=== PATIENT | male | born 1995 | race Two or more races ===

== ENCOUNTER → 2024-10-27 10:14 | Outpatient (BNVA) | payer MEDICAID, SELFPAY | PROVIDERS: PCP Internal Medicine Geriatric Medicine; Visit Provider Physician Assistant Surgical ==

== ENCOUNTER 2024-11-20 08:10 | Outpatient (AMB) | payer MEDICAID, SELFPAY ==
--- NOTE | 2024-11-20 10:08 | MHC.OFFVISWM ---
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* Senior Linux Systems Engineer Required: Yes Senior Linux Systems Engineer Services: Senior Linux Systems Engineer Present Information Interpreted: clinical only Allergies SHELL FISH Allergy (Severe, Uncoded 11/20/24 10:13) Anaphylaxis Medication List - Last Reconciled 11/20/24 by Magan Mejia MD No Known Home Meds HPI HPI TV LEAF [facility]IN[facility] SWL BMI 48.8 *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 AND 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*: Details: Start time: 10.00am, End time: 11am ?I spent 55 minutes speaking with the patient on the phone plus an additional 5 minutes reviewing and updating records for a total of 60 minutes HPI Comments Details: Previous weight loss efforts: self diets and exercise Wakes up: 6am, Sleeps: 10pm Breakfast: skips Lunch: 12-12.30pm (anything) Dinner: 6-8pm (rice, chicken) Snacks: 10am (bar), 3-4pm (bread) Exercise: had home stationary bike (does not track calories) Beverages: Coffee (1 cup/d with cream and sugar) x3/wk, tea: none, soda:none, Juice: Gatorade regular daily (2 bottles/day) PFSH Medical History (Updated 11/20/24 @ 10:15 by Magan Mejia MD) Obstructive sleep apnea on CPAP Morbid obesity Surgical History (Updated 10/27/24 @ 10:30 by Valeria Ness CMA) No history of previous surgery Family History (Updated 10/27/24 @ 10:31 by Valeria Ness CMA) Mother No problems noted. Father Hypertension Social History (Updated 10/27/24 @ 10:30 by Valeria Ness CMA) Alcohol intake: current Alcohol intake frequency: holidays/special occasions only Patient Tobacco Use Status: Never used Tobacco Telehealth Telehealth Telehealth Platform: Telephone Location of provider rendering services: practice address Location of patient: address on file Patient Identification confirmed using: Name, : Yes Telehealth method: voice only Patient verbally consented to treatment: Yes Patient verbally consented to billing insurance company: Yes Patient informed of any privacy concerns related to visit: Yes Minutes spent on Phone/Video with Pt.: 60 Assessment & Plan Assessment & Plan (1) Morbid obesity: Code(s): E66.01 - Morbid (severe) obesity due to excess calories Category: Medical Plan: 1.? Plan for lap sleeve gastrectomy. If diaphragmatic or ventral hernias are present at time of surgery, these will be repaired laparoscopically as well. I emphasized the importance of close follow-up, adherence to instructions and good communication. The surgery does not replace the need to change your lifestlyle which is the cause of the obesity problem. The surgery provides the motivation to try again to change your lifestyle, it reduces the appetite and make the transition to a better lifestyle easier and doubles the amount of weight you would lose compared to doing the lifestyle change without the surgery. You will need to be on a liquid diet with protein shakes for 2 weeks before surgery to maximize weight loss and boost your nutritional status to recover better from surgery and also for the first two weeks after surgery to let the stomach heal before we introduce other foods. After the first 2 weeks we will introduce protein bars and soft foods like scrambled eggs, cottage cheese and yogurt and after the 6th week will introduce meat, fish and cooked vegetables in small amounts. Over time you should be able to eat everything in small amounts. Side effects like nausea, vomiting, heartburn or abdominal pain are not common in the practice unless you are not following in the practice. This operation requires lifetime commitment to following in our practice and communication with me. You will much less weight and experience side effects if you don?t communicate or not following in the practice. Complications are rare and in our practice is about 1/10 of the national average. However, you can develop bleeding that may require transfusion (hasn?t happened for year in the practice), you may from complications (we did not have any deaths in the practice) and infections. Infections are usually a result of breakdown in communication or not understanding or following directions correctly. They are difficult to treat, they can happen during the first 6 weeks, they may require to be in the hospital for weeks or even months, not being able to eat by mouth and you may have drains and surgeries to try and correct the issue. Other risks and complications include possible conversion to an open procedure, leaks, small bowel obstruction, blood clots, cardiac, or pulmonary complications, as skilled nursing complications such as ulcers, insufficient weight loss and vitamin deficiencies. 2.? Nutritional counseling. Start 8oz (NOT THE WHOLE BOTTLE) PREMIER protein (buy at [employer], [employer], or [employer]) shake at 7am-9am, one Fit Crunch protein bar (buy at [employer],?[employer], or [employer]) at 10am-12pm, another 8oz (NOT THE WHOLE BOTTLE) PREMIER protein shake at 1pm-3pm, another Fit Crunch protein bar at 4pm-6pm, dinner at 7pm (12 forks of protein and 12 forks of salad/vegetables). If hungry after dinner, you can have another HALF Fit Crunch protein bar at 9pm-10pm. So you do 2 protein shakes, 2 to 2.5 protein bars and one meal per day. Meal to include lean meat (beef, fish, pork, turkey, chicken), or persian yogurt, or egg whites, or beans with a salad with olive oil and fruits (berries, pears, apples, kiwi). Avoid salt, breads, potatoes, rice, pasta, desserts. 3. Each shake would be drunk slowly, like coffee in a period of 2 hours. 4. Cut each bar in 4 pieces and eat each piece in 30min ?to make each bar last 2 hours. 5. I emphasized the importance of measuring accurately the food portion and measure it when serving the food in plate 6. The meal portions include 12 full-size forks of meat and 12 full-size forks of salad. You always eat the meat portion but you can replace up to 6 forks for salad/vegetables with rice, potatoes or pasta, or a fruit ?if you like. The less you do it the better weight loss will be. 7. One full-size fork is what it can be scooped on the fork without falling aside and not what can be bit with the fork. Use regular forks like those you find in a typical restaurant. 8.? Please buy the body composition scale we discussed and send me weight measurements as soon as possible and then once a week. Always include your diet and exercise plan. 9. Start stationary bike at a resistance level of 2.0 Increase level by 1.0 every 3 min to a max level of 8.0. Stay at this level for 3 min and then return to level 2.0 and repeat same steps for 45 minutes daily. 10. The best choice would be to purchase a new stationary bike, elliptical or treadmill at home that can track calories. Let me know if you do so I can give you an exercise plan. 11. Goal is to lose at least 1.5-2lbs per week 12. Goal to lose 10% of your weight before surgery, which is about 39lbs. Ultimate weight goal: 320lbs before surgery 13. Please follow the diet plan exactly without any change. If you don't like something about the plan or you feel hungry you need to communicate with me so I can help you revise the plan. You should not change the plan yourself 14. To be scheduled for EGD to assess the stomach's anatomy. The possibility of biopsies was discussed. Patient needs to avoid use of NSAIDs and aspirin for 1 week prior to EGD. You must be on liquids only the day before your endoscopy. Risks of perforation and bleeding was discussed with the patient. This will be an outpatient procedure with IV sedation. Orders: Orders Hemoglobin A1c Today E66.01 - Morbid (severe) obesity due to excess calories, G47.33 - Obstructive sleep apnea (adult) (pediatric) H Pylori Breath Test Today E66.01 - Morbid (severe) obesity due to excess calories, G47.33 - Obstructive sleep apnea (adult) (pediatric) Lipid Panel Today E66.01 - Morbid (severe) obesity due to excess calories, G47.33 - Obstructive sleep apnea (adult) (pediatric) IRON PROFILE Today E66.01 - Morbid (severe) obesity due to excess calories, G47.33 - Obstructive sleep apnea (adult) (pediatric) Comprehensive Met. Panel Today E66.01 - Morbid (severe) obesity due to excess calories, G47.33 - Obstructive sleep apnea (adult) (pediatric) Vitamin B12 and Folate Today E66.01 - Morbid (severe) obesity due to excess calories, G47.33 - Obstructive sleep apnea (adult) (pediatric) Vitamin B1 Today E66.01 - Morbid (severe) obesity due to excess calories, G47.33 - Obstructive sleep apnea (adult) (pediatric) TSH reflex Free T4 Today E66.01 - Morbid (severe) obesity due to excess calories, G47.33 - Obstructive sleep apnea (adult) (pediatric) Vitamin D 25-OH Total Today E66.01 - Morbid (severe) obesity due to excess calories, G47.33 - Obstructive sleep apnea (adult) (pediatric) US abdomen comp w elastography Today E66.01 - Morbid (severe) obesity due to excess calories, G47.33 - Obstructive sleep apnea (adult) (pediatric) ECG 12 lead EKG Today E66.01 - Morbid (severe) obesity due to excess calories, G47.33 - Obstructive sleep apnea (adult) (pediatric) FL upper GI w air Today E66.01 - Morbid (severe) obesity due to excess calories, G47.33 - Obstructive sleep apnea (adult) (pediatric) Insulin Today E66.01 - Morbid (severe) obesity due to excess calories, G47.33 - Obstructive sleep apnea (adult) (pediatric) Complete Blood Count Auto Diff Today E66.01 - Morbid (severe) obesity due to excess calories, G47.33 - Obstructive sleep apnea (adult) (pediatric) Zinc Today E66.01 - Morbid (severe) obesity due to excess calories, G47.33 - Obstructive sleep apnea (adult) (pediatric) C Reactive Protein Today E66.01 - Morbid (severe) obesity due to excess calories, G47.33 - Obstructive sleep apnea (adult) (pediatric) Vitamin A Today E66.01 - Morbid (severe) obesity due to excess calories, G47.33 - Obstructive sleep apnea (adult) (pediatric) Ferritin Today E66.01 - Morbid (severe) obesity due to excess calories, G47.33 - Obstructive sleep apnea (adult) (pediatric) XR chest 2V Today E66.01 - Morbid (severe) obesity due to excess calories, G47.33 - Obstructive sleep apnea (adult) (pediatric) Referrals Behavioral Health Referral E66.01 - Morbid (severe) obesity due to excess calories, G47.33 - Obstructive sleep apnea (adult) (pediatric) Nutrition/Dietitian Referral E66.01 - Morbid (severe) obesity due to excess calories, G47.33 - Obstructive sleep apnea (adult) (pediatric)
[2024-11-20 10:27] VITALS: BMI 48.7
== END 2024-11-20 11:00 | disposition home or self-care (01) ==
LOC: HO.HBS 08:10
PROVIDERS: PCP Internal Medicine Geriatric Medicine; Visit Provider Surgery
DX: E66.01 Morbid (severe) obesity due to excess calories (principal)
CPT/HCPCS: 99205

== ENCOUNTER 2024-11-27 09:49 | Outpatient (REF) | payer MEDICAID, SELFPAY ==
--- NOTE | ~2024-11-27 | XR_ITS ---
EXAMINATION: XR CHEST CLINICAL INFORMATION: E66.01 - Morbid (severe) obesity due to excess calories COMPARISON: None available. TECHNIQUE: 2 views of the chest were obtained. FINDINGS: No hyperinflation. No consolidation pleural effusion or pneumothorax. Cardiomediastinal silhouette size is normal. Osseous structures are grossly intact. XR/XR chest 2V IMPRESSION: No acute airspace disease. Negative x-ray. Electronically signed by: Dhruv Davis MD 11/27/2024 10:30 AM EDT
--- NOTE | 2024-11-27 09:55 | ECG_ITS ---
Test Reason : MOR OBS Blood Pressure : */* mmHG Vent. Rate : 70 BPM Atrial Rate : 70 BPM P-R Int : 146 ms QRS Dur : 102 ms QT Int : 384 ms P-R-T Axes : 2 72 48 degrees QTcB Int : 414 ms Normal sinus rhythm Low voltage QRS Borderline ECG No previous ECGs available Referred By: Magan Mejia Electronically Signed By: TEENA DAMON
[2024-11-27 11:38] LABS: SCAN SMEAR FLAG 1
[2024-11-27 11:40] LABS: Basophils Percent Auto 0.3 % (0-2); Eosinophils Absolute Auto 0.1 X10*3/uL (0.0-0.4); Eosinophils Percent Auto 1.2 % (0-4); Hematocrit 43.1 % (42.0-52.0); Hemoglobin 14.9 g/dl (14.0-18.0); Imm Gran Abs Auto 0.02 X10*3/uL (0.00-0.03); Imm Gran Pct Auto 0.3 % (0.0-0.4); Lymphocytes Absolute Auto 1.1 X10*3/uL (1.2-4.9); Lymphocytes Percent Auto 15.6 % (20-40); MANUAL DIFF FLAG SCAN; Mean Corpuscular HGB Conc 34.6 g/dl (31.0-36.0); Mean Corpuscular Hemoglobin 29.2 pg (27.0-33.0); Mean Corpuscular Volume 84.3 fL (80.0-98.0); Mean Platelet Volume 13.4 fL (9.4-12.4); Monocytes Absolute Auto 0.4 X10*3/uL (0.1-1.2); Monocytes Percent Auto 5.8 % (2-11); Neutrophils Absolute Auto 5.3 x10*3/uL (2.0-8.3); Neutrophils Percent Auto 76.8 % (45-73); Platelet Count 142 X10*3/uL (160-400); Red Blood Count 5.11 X10*6/uL (4.60-5.80); White Blood Count 6.8 X10*3/uL (4.8-10.8)
[2024-11-27 11:45] LABS: Estimated Average Glucose 94 mg/dL; Hemoglobin A1c % 4.9 % (<6.0)
[2024-11-27 11:49] LABS: PLT ABN DIST 1
[2024-11-27 11:54] LABS: Alanine Aminotransferase 13 U/L (0-40); Albumin Level 4.6 g/dL (3.5-5.0); Alkaline Phosphatase 81 U/L (39-117); Anion Gap 13 (12-20); Aspartate Amino Transferase 16 U/L (5-37); Bilirubin Total 0.7 mg/dL (0.0-1.0); Blood Urea Nitrogen 10 mg/dL (9-16); C Reactive Protein 1.97 mg/dL (< or = 0.50); Calcium 9.2 mg/dL (8.4-10.2); Carbon Dioxide 27 mmol/L (22-29); Chloride 103 mmol/L (96-108); Cholesterol 93 mg/dL (<200); Estimated Glomerular Filt Rate > 60; Glucose Random 87 mg/dL (60-115); HDL Cholesterol 34 mg/dL (>40); Iron 38 mcg/dL (45-160); LDL Cholesterol Calculated 47 mg/dL (<100); Percent Iron Saturation 16 % (15-50); Potassium 3.6 mmol/L (3.3-5.1); Sodium 139 mmol/L (135-145); Total Iron Binding Capacity 241 mcg/dL (228-428); Total Protein 7.7 g/dL (6.5-8.0); Triglycerides 63 mg/dL (<150); Unsaturated Iron Binding 203 ug/dL
[2024-11-27 11:59] LABS: SLIDE REVIEW VERIFIED
[2024-11-27 12:18] LABS: Ferritin 181 ng/mL (20-250); Insulin 10 uU/mL (2-29); TSH reflex Free T4 1.88 uIU/mL (0.32-4.0); Vitamin D 25-OH Total 17.5 ng/mL (>30)
[2024-11-27 12:23] LABS: Vitamin B12 427 pg/mL (200-900)
[2024-11-30 23:39] LABS: Zinc 70 mcg/dL (60-130)
[2024-12-01 18:39] LABS: Vitamin A 32 mcg/dL (38-98)
[2024-12-03 06:09] LABS: Vitamin B1 6 nmol/L (8-30)
== END 2024-11-27 09:50 | disposition home or self-care (01) ==
LOC: HO.XRAY 09:49
PROVIDERS: PCP Internal Medicine Geriatric Medicine; Visit Provider Surgery
DX: E66.01 Morbid (severe) obesity due to excess calories (principal); G47.33 Obstructive sleep apnea (adult) (pediatric); Z99.89 Dependence on other enabling machines and devices
CPT/HCPCS: 36415; 71046; 80053; 80061; 82306; 82607; 82728; 82746; 83036; 83525; 83540; 84425; 84443; 84590; 84630; 85025; 86140; 93005

== ENCOUNTER → 2024-11-27 09:55 | Outpatient (BNV) | payer MEDICAID, SELFPAY | PROVIDERS: PCP Internal Medicine Geriatric Medicine; Visit Provider Internal Medicine | DX: E66.01 Morbid (severe) obesity due to excess calories (principal) | CPT/HCPCS: 93010 ==

== ENCOUNTER → 2024-11-27 10:18 | Outpatient (BNV) | payer MEDICAID, SELFPAY | PROVIDERS: PCP Internal Medicine Geriatric Medicine; Visit Provider Radiology Diagnostic Radiology | DX: E66.01 Morbid (severe) obesity due to excess calories (principal) | CPT/HCPCS: 71046 ==

== ENCOUNTER 2024-12-03 09:43 | Day surgery (SDC) | payer MEDICAID, SELFPAY ==
[2024-12-01 12:57] VITALS: BMI 48.7
[2024-12-03 11:44] VITALS: BMI 21.1
[2024-12-03 11:57] VITALS: BP 130/71; PULSE 81; RESP 16; TEMP 36.3; O2SAT 99; BMI 46.5
[2024-12-03] MEDS: Lactated Ringers 1,000 ML 80 ML IVCONT (12:07)
--- NOTE | 2024-12-03 12:22 | HO.ANESPROP2 ---
Documented by User: Melba Prather NP 12/01/24 13:06 HPI - Anesthesia Eval Consult details Narrative: 29yo M for Upper Endoscopy BMI 48 PMFSH Active Problems Active Problems: All Active Problems Vitamin B12 deficiency (Acute) Vitamin D deficiency (Acute) Obstructive sleep apnea on CPAP (Acute) Morbid obesity (Acute) Past Medical History Medical History (Updated 11/28/24 @ 09:59 by Magan Mejia MD) Obstructive sleep apnea on CPAP Morbid obesity Family History Family History Mother No problems noted. Father Hypertension Surgical History Surgical History (Updated 10/27/24 @ 10:30 by Valeria Ness CMA) No history of previous surgery Social History Social History (Updated 10/27/24 @ 10:30 by Valeria Ness CMA) Are you a primary children's zoo caretaker to a significant other at home: No Do you presently have visiting nurse or other home services: No Alcohol intake: current Alcohol intake frequency: holidays/special occasions only Patient Tobacco Use Status: Never used Tobacco Use of substances other than those prescribed or required for medical reasons: No Have you been hit, kicked, punched, or otherwise hurt by someone within the past year? If so, by whom?: No Are you DNR?: No Advance Directives: No Advance Directives Information Provided: No Advance Directives on File: No Poor oral hygiene: No Meds Allergies Allergy/AdvReac Type Severity Reaction Status Date / Time shellfish derived (shellfish) Allergy Severe Anaphylaxis Verified 12/03/24 11:51 Exam Height,Weight and Vital Signs: Height 6 ft Weight 162.953 kg Assessment and Plan Assessment Anesthesia Assessment: Chart Reviewed Documented by User: Robyn Tan DO 12/03/24 12:23 PMFSH Past Medical History Medical History (Updated 11/28/24 @ 09:59 by Magan Mejia MD) Obstructive sleep apnea on CPAP Morbid obesity Family History Family History Mother No problems noted. Father Hypertension Family history of problems with anesthesia: No Surgical History Surgical History (Updated 10/27/24 @ 10:30 by Valeria Ness CMA) No history of previous surgery History of Problems with Anesthesia: No (never had anesthesia) Social History Social History (Updated 10/27/24 @ 10:30 by Valeria Ness CMA) Are you a primary children's zoo caretaker to a significant other at home: No Do you presently have visiting nurse or other home services: No Alcohol intake: current Alcohol intake frequency: holidays/special occasions only Patient Tobacco Use Status: Never used Tobacco Use of substances other than those prescribed or required for medical reasons: No Have you been hit, kicked, punched, or otherwise hurt by someone within the past year? If so, by whom?: No Are you DNR?: No Advance Directives: No Advance Directives Information Provided: No Advance Directives on File: No Poor oral hygiene: No Meds Allergies Allergy/AdvReac Type Severity Reaction Status Date / Time shellfish derived (shellfish) Allergy Severe Anaphylaxis Verified 12/03/24 11:51 Exam Exam Date and Time: 12/03/24 1220 Height,Weight and Vital Signs: Height 6 ft Weight 162.953 kg Vital Signs Temperature 97.4 F 12/03/24 11:57 Pulse Rate 81 12/03/24 11:57 Respiratory Rate 16 12/03/24 11:57 Blood Pressure 130/71 12/03/24 11:57 Pulse Oximetry 99 12/03/24 11:57 Oxygen Delivery Method Room Air 12/03/24 11:57 Temperature 97.4 F 12/03/24 11:57 Pulse Rate 81 12/03/24 11:57 Respiratory Rate 16 12/03/24 11:57 Blood Pressure 130/71 12/03/24 11:57 Pulse Oximetry 99 12/03/24 11:57 Oxygen Delivery Method Room Air 12/03/24 11:57 Airway Mallampati Class: III TM Dist: >3cm Neck ROM: Full Loose/Missing/Broken Teeth: Yes (broken molars) Heart: S1S2 Lungs: CTAB Assessment and Plan Assessment Anesthesia Assessment: Anesthesia Plan Discussed and Chart Reviewed Final Anesthetic Review Family History of Problems with Anesthesia: No History of Problems with Anesthesia: No (never had anesthesia) NPO: Yes ASA Class: III Final Preanesthetic Review: No Changes in Pt Med Stat, Meds/Allgs Chart Reviewed, Consent Obtained/Reviewed and Anes Risks/Benef Reviewed Patient Risk: Intermediate Procedure Risk: Low Anesthetic Plan Anesthetic Plan: MAC: and Agree w/ Assess. and Plan Disposition: Standard PACU
--- NOTE | 2024-12-03 12:42 | MHC.SHP ---
Pre-Procedural Eval Section A - 24 Hr Update-Section A only Date of Service: 12/03/24 The patient is an INPATIENT: No The patient has been examined within 24 hours of the surgical procedure. The History & Physical has been completed within 30 days and I have reviewed it.: Yes Section B - Complete if H&P > 30 days Chief Complaint: Morbid (severe) obesity due to excess calories Relevant Family History (Specify if Yes): No Relevant Social History: None Present Medications: None Medical History: No relevant PMH History of Previous Operations: No relevant previous surgery Allergies: Allergies Allergy/AdvReac Type Severity Reaction Status Date / Time shellfish derived (shellfish) Allergy Severe Anaphylaxis Verified 12/03/24 11:51 Review of Systems Sugical H&P ROS: Negative: Constitution, Cardiovascular, Respiratory, Neurological, Psychiatric, Hem-Onc, Allergic/Immunologic, Gastrointestinal, Genitourinary, Musculoskeletal, Integumentary, Endocrine and Eyes/Ears/Nose/Throat Exam Surgical H&P Exam: Normal: HEENT, Normal: Heart, Normal: Lungs, Normal: Extremities, Normal: Abdomen, Normal: Skin and Normal: Neurological Plan Diagnosis/Plan: Unchanged (EGD to assess the stomach's anatomy. Risks of bleeding and perforation were discussed with the patient and he is in agreement with the plan.) I have reviewed the history and physical and performed a pertinent physical examination on my patient. No changes have occurred unless specified. Time Spent With Patient Time: Total time managing care of this patient today ____ minutes.
--- NOTE | 2024-12-03 12:45 | P.BOP_ITS ---
Brief Operative Note Date of Service: 12/03/24 Pre-op diagnosis: Morbid obesity Post-op diagnosis: same Procedure: PROCEDURE DATE: 12/03/2024 PREOPERATIVE DIAGNOSIS: GERD POSTOPERATIVE DIAGNOSIS: ?Same as above. Esophagitis PROCEDURE: [id number] with biopsies Surgeon: Forrest Mejia M.D.. Ph.D. Consumer Marketing Manager: None ? Anesthesia: IV sedation Estimated blood loss: ?Minimal FINDINGS AND PROCEDURE: ? OPERATIVE INDICATIONS: ?The patient is a 29 year old male known to me who is interested in bariatric surgery. Based on this information I recommended an upper endoscopy to evaluate the patient's symptoms. Risks and complications of the surgery were discussed with the patient in advance particularly the possibility of perforation or bleeding that may require surgical intervention. The patient understood the risks and was in agreement with the plan. ? PROCEDURE: After informed consent was obtained by the patient, the patient was ?transferred to the Operating Room and was placed in the supine position.? After successful induction of IV sedation, a mouth block was inserted and the patient was placed in the left lateral decubitus position. An upper endoscopy was performed next, the oropharynx and esophagus appeared within the normal limits. There was no hiatal hernia. The z-line was irregular with tongues of gastric mucosa protruding into the esophagus at 50% circumference. Two biopsies were obtained from the distal esophagus 2-3 cm proximal to the GE junction and two additional biopsies from the GE junction. The stomach was entered and it appeared to be of normal size. There was no gastritis. There was no stricture or ulcer. A biopsy was obtained from the gastric fundus and the antrum. No significant bleeding was noted from any of the biopsy sites. Retroflexion of the scope confirmed a normal GE junction. The scope was then advanced into the duodenum which appeared to be normal as well. At that point the duodenum ?and the stomach were decompressed and the scope was withdrawn from the patient's mouth. The patient extubated and was transferred in stable condition to the Recovery Room for further care. I was present and performed all steps of the procedure. There were no residents to assist with this case. Shahriar Mejia M.D., Ph.D. Surgeon: Magan Mejia MD Anesthesia: MAC Was an Consumer Marketing Manager used for this Procedure?: No Estimated blood loss (mL): 0 IV fluids (mL): 400 Urine output (mL): 0 (No March to record output) Pathology: other (1) antrum x1, 2) fundus x1, 3) GE junction x2, 4) distal esophagus x2) Condition: stable Disposition: PACU
[2024-12-03 13:06] VITALS: BP 92/38; PULSE 78; RESP 16; TEMP 36.4; O2SAT 97
[2024-12-03 13:10] VITALS: BP 97/43; PULSE 69; RESP 16; O2SAT 96
[2024-12-03 13:20] VITALS: BP 110/57; PULSE 63; RESP 16; O2SAT 97
[2024-12-03 13:37] VITALS: BP 109/67; PULSE 63; RESP 16; TEMP 36.4; O2SAT 97
== END 2024-12-03 14:18 | disposition home or self-care (01) ==
PROVIDERS: PCP Internal Medicine Geriatric Medicine; Visit Provider Surgery
PROC: 0DJ08ZZ Inspection of Upper Intestinal Tract, Via Natural or Artificial Opening Endoscopic (ICD-10-PCS; CPT 43235; principal; 2024-12-03 15:00)
DX: E66.01 Morbid (severe) obesity due to excess calories (principal); Z68.42 Body mass index [BMI] 45.0-49.9, adult; K21.9 Gastro-esophageal reflux disease without esophagitis; K20.80 Other esophagitis without bleeding; G47.33 Obstructive sleep apnea (adult) (pediatric); Z99.89 Dependence on other enabling machines and devices; Z91.013 Allergy to seafood
CPT/HCPCS: 43239; 88305; 88313; 88342; J2704

== ENCOUNTER → 2024-12-03 09:43 | Outpatient (BNV) | payer MEDICAID, SELFPAY | PROVIDERS: PCP Internal Medicine Geriatric Medicine; Visit Provider Surgery | DX: K21.00 Gastro-esophageal reflux disease with esophagitis, without bleeding (principal) | CPT/HCPCS: 43239 ==

== ENCOUNTER 2024-12-18 09:00 | Outpatient (AMB) | payer OTHER, SELFPAY ==
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
== END 2024-12-18 10:01 | disposition home or self-care (01) ==
LOC: HO.HBST 09:53
PROVIDERS: PCP Internal Medicine Geriatric Medicine; Visit Provider Counselor Mental Health
DX: F43.9 Reaction to severe stress, unspecified (principal); Z71.89 Other specified counseling
CPT/HCPCS: 90834

== ENCOUNTER 2025-01-14 08:13 | Outpatient (AMB) | payer OTHER, SELFPAY ==
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
== END 2025-01-14 09:18 | disposition home or self-care (01) ==
LOC: HO.HBST 08:13
PROVIDERS: Visit Provider Counselor Mental Health
DX: F43.21 Adjustment disorder with depressed mood (principal); F43.9 Reaction to severe stress, unspecified; Z71.89 Other specified counseling
CPT/HCPCS: 90837

== ENCOUNTER 2025-01-27 10:04 | Outpatient (REF) | payer OTHER, SELFPAY ==
[2025-01-27 12:21] LABS: HIV Num 1 0.05 S/CO (0.00-0.99); ~HepC Num1 0.10 S/CO (0.00-0.79); ~Hepatitis C Antibody Nonreactive (Nonreactive)
== END 2025-01-27 10:05 | disposition home or self-care (01) ==
LOC: HO.HHCL 10:04
PROVIDERS: PCP Internal Medicine Geriatric Medicine; Visit Provider Internal Medicine Geriatric Medicine
DX: Z11.4 Encounter for screening for human immunodeficiency virus [HIV] (principal); Z11.59 Encounter for screening for other viral diseases
CPT/HCPCS: 36415; 86803; 87389

== ENCOUNTER 2025-02-05 13:20 | Outpatient (AMB) | payer OTHER, SELFPAY ==
--- NOTE | 2025-02-05 13:15 | A.OFFWM_ITS ---
Intake Intake Visit Reasons: VIDEO F/U Allergies shellfish derived (shellfish) Allergy (Severe, Verified 01/29/25 09:25) Anaphylaxis [facility] Medical History (System 01/29/25 @ 09:25 by Trini Clement) Obstructive sleep apnea on CPAP Morbid obesity Surgical History (System 01/29/25 @ 09:25 by Trini Clement) No history of previous surgery Family History (System 01/29/25 @ 09:25 by Trini Clement) Mother No problems noted. Father Hypertension Social History (System 01/29/25 @ 09:25 by Trini Clement) Are you a primary care process manager to a significant other at home: No Do you presently have visiting nurse or other home services: No Alcohol intake: current Alcohol intake frequency: holidays/special occasions only Patient Tobacco Use Status: Never used Tobacco Behavioral Health Assessment Weight Management Therapy Therapy Notes Details Subjective: The patient reports ongoing independent work to generate income while remaining unemployed. He describes improved emotional well-being, noting that a recent breakup has alleviated significant stress. He continues to lose weight at a steady rate and expresses motivation to proceed with bariatric surgery. Objective: The patient presented for a pre-operative follow-up visit via telehealth. * Reviewed current functioning, meal, and exercise plans, and discussed recent positive life changes. * Explored cognitive distortions related to self-efficacy and body image, and practiced reframing negative thoughts. * Introduced behavioral activation strategies to support continued engagement in healthy routines. * Provided psychoeducation on the relationship between thoughts, emotions, and behaviors, particularly in the context of weight management. * Practiced problem-solving skills for managing potential triggers and setbacks. * Reinforced use of stress and mood management techniques, including relaxation exercises and mindfulness strategies. * Assessed readiness for weight-loss surgery. * PHQ-9 administered. Assessment/Response: * Mental status: WNL * Risk reported/identified: None * PHQ-9: No active symptoms of depression Food/Weight/Diet Expectations of change PT started the program on 11/20/24 at 359lbs, and the initial goal is to lose 10% of his weight before surgery, which is approximately 39lbs. Ultimate weight goal: 320lbs before surgery. PT reports ahis most recent weight as of 01/08/25 was 339Lbs. Patient goals are to be at least 190-200Lbs post-op and keep a healthier lifes tyle. Recent weight : 333Lbs PT is implementing the following: Current meal plan: 2 protein shakes, 2 to 2.5 protein bars and one meal per day Exercise plan: 45min treadmill or 300 sami at day, 5 days at week. scale: yes. communication w/ provider: Saturday. Questionnaires PHQ-9 Over the last 2 weeks, how often have you been bothered by any of the following problems? 1. Little interest or pleasure in doing things: not at all 2. Feeling down, depressed, or hopeless: not at all 3. Trouble falling or staying asleep, or sleeping too much: not at all 4. Feeling tired or having little energy: not at all 5. Poor appetite or overeating: not at all 6. Feeling bad about yourself - or that you are a failure or have let yourself or your family down: not at all 7. Trouble concentrating on things, such as reading the newspaper or watching television: not at all 8. Moving or speaking so slowly that other people could have noticed. Or the opposite - being so fidgety or restless that you have been moving around a lot more than usual: not at all 9. Thoughts that you would be better off or of hurting yourself in some way: not at all Total score: 0 Depression Screening Interpretation: Negative Depression Screening Done: Yes 89675 - PHQ-9 Billing: Yes Source: Developed by Drs. Vladimir Rowland, Rosy Lamb, Bert Pedro and colleagues, with an educational jean marie from [employer]. Assessment & Plan Assessment & Plan (1) Adjustment disorder: Code(s): F43.20 - Adjustment disorder, unspecified Qualifiers: Adjustment disorder type: with depressed mood Qualified Code(s): F43.21 - Adjustment disorder with depressed mood (2) Trauma and stressor-related disorder: Code(s): F43.9 - Reaction to severe stress, unspecified Plan The patient appears stable, with notable improvements in mood, motivation, and overall functioning. Cleared from a behavioral health standpoint for bariatric surgery. Will return in 4 weeks for continued pre-operative support. Next appointment:?03/03/25 at 11:00 AM (video visit) Telehealth Telehealth Telehealth Platform: [employer] Location of provider rendering services: practice address Location of patient: address on file Patient Identification confirmed using: Name, : Yes Telehealth method: video Patient verbally consented to treatment: Yes Patient verbally consented to billing insurance company: Yes Patient informed of any privacy concerns related to visit: Yes Minutes spent on Phone/Video with Pt.: 45 Coding Level of Care Code Established Pt Tele Psytx 45 mins ([id number]) Patient Type Established Diagnoses Adjustment disorder with depressed mood F43.21 Adjustment disorder type: with depressed mood Trauma and stressor-related disorder F43.9 Additional Codes PHQ-9 - 12394 - PHQ-9 Billing: Yes ([id number]) Time Spent (min) 45
== END 2025-02-05 13:58 | disposition home or self-care (01) ==
LOC: HO.HBST 13:20
PROVIDERS: PCP Internal Medicine Geriatric Medicine; Visit Provider Counselor Mental Health
DX: F43.21 Adjustment disorder with depressed mood (principal); F43.9 Reaction to severe stress, unspecified
CPT/HCPCS: 90834

== ENCOUNTER 2025-02-26 09:04 | Outpatient (REF) | payer MEDICAID, SELFPAY ==
--- NOTE | ~2025-02-26 | US_ITS ---
EXAMINATION: US COMPLETE ABDOMEN WITH LIVER ELASTOGRAPHY CLINICAL INFORMATION: Morbid obesity due to excess calories. COMPARISON: None available. TECHNIQUE: Real-time imaging of the abdominal viscera. Noninvasive ultrasound liver fibrosis assessment is performed using Brittney ElastPQ point quantification shear wave elastography (pSWE) with a C5-2 MHz transducer. Multiple elastography samples are obtained. FINDINGS: PANCREAS: The visualized pancreatic head and body are normal in appearance. The remainder of the pancreas is obscured from visualization by the overlying bowel gas. ABDOMINAL AORTA: No aortic aneurysm is seen. INFERIOR VENA CAVA: Visualized portions are normal. LIVER: The liver demonstrates normal size, contour and echogenicity. No focal lesion or intrahepatic biliary duct dilatation. The right lobe measures 14.8 cm in length. The left lobe measures 8.5 cm in length. Portal flow is towards the liver (hepatopetal). Shear wave liver elastography median stiffness is 1.31 m/s (reference: normal median stiffness is 1.3 m/s or less). IQR/median stiffness to assess sampling precision is 0.17 (reference: good quality data set is IQR/median stiffness of 0.15 or less). GALLBLADDER: The gallbladder is physiologically distended with intraluminal gallstones. No sludge, polyps, wall thickening or pericholecystic fluid. COMMON BILE DUCT: Normal in caliber measuring 0.4 cm in diameter. RIGHT KIDNEY: No hydronephrosis. No renal calculi or focal parenchymal lesions. The kidney measures 11.1 cm in maximum dimension. LEFT KIDNEY: No hydronephrosis. No renal calculi or focal parenchymal lesions. The kidney measures 11.6 cm in maximum dimension. SPLEEN: Upper limits of normal in size. The spleen measures 13.1 cm in maximum dimension. FREE FLUID: None seen. US/US abdomen comp w elastography IMPRESSION: 1. Essentially normal-appearing liver, and bile ducts. There are gallstones present. No evidence of gallbladder inflammation. 2. Liver elastography: Although measurements appear to rule out compensated advanced chronic liver disease, there is statistical variability of the sampling which decreases accuracy. 3. Borderline splenic enlargement. REFERENCE: Society of Radiologists in Ultrasound Liver Stiffness Thresholds (2020): LIVER STIFFNESS THRESHOLDS: *Liver Stiffness equal or less than 1.3 m/s: High probability of being normal. *Liver Stiffness less than 1.7 m/s: In the absence of other known clinical signs, rules out compensated advanced chronic liver disease. *Liver Stiffness 1.7-2.1 m/s: Suggestive of compensated advanced chronic liver disease but need further test for confirmation. *Liver Stiffness over 2.1 m/s: Rules in compensated advanced chronic liver disease. *Liver Stiffness over 2.4 m/s: Suggestive of clinically significant portal hypertension. QUALITY OF DATA SET: *IQR/Median value equal or less than 0.15 implies a quality data set. *IQR/Median value over 0.15 implies a poor quality data set. SIGNIFICANT CHANGE FROM PRIOR EXAM: Significant change if liver stiffness measurement is 10% or greater from prior exam. OTHER CONSIDERATIONS: The stage of liver fibrosis may be overestimated in the setting of acute hepatitis, liver inflammation, elevated liver function tests, hepatic vascular congestion, obstructive cholestasis, non-fasting state, and infiltrative diseases such as amyloidosis and lymphoma. In some patients with NAFLD, the liver stiffness thresholds for compensated advanced chronic liver disease may be lower. In causes other than viral hepatitis and NAFLD, liver stiffness thresholds are not well established. Electronically signed by: Silas Giang MD 02/26/2025 10:05 AM EDT
== END 2025-02-26 09:05 | disposition home or self-care (01) ==
LOC: HO.US 09:04
PROVIDERS: PCP Internal Medicine Geriatric Medicine; Visit Provider Surgery
DX: E66.01 Morbid (severe) obesity due to excess calories (principal); G47.33 Obstructive sleep apnea (adult) (pediatric)
CPT/HCPCS: 76700; 76981

== ENCOUNTER → 2025-02-26 09:06 | Outpatient (BNV) | payer MEDICAID, SELFPAY | PROVIDERS: PCP Internal Medicine Geriatric Medicine; Visit Provider Radiology Diagnostic Radiology | DX: K80.20 Calculus of gallbladder without cholecystitis without obstruction (principal); E66.01 Morbid (severe) obesity due to excess calories | CPT/HCPCS: 76700 ==

== ENCOUNTER 2025-03-03 11:06 | Outpatient (AMB) | payer OTHER, SELFPAY ==
--- NOTE | 2025-03-03 11:05 | A.OFFWM_ITS ---
Intake Intake Visit Reasons: VIDEO F/U Allergies shellfish derived (shellfish) Allergy (Severe, Verified 01/29/25 09:25) Anaphylaxis [facility] Medical History (System 01/29/25 @ 09:25 by Trini Clement) Obstructive sleep apnea on CPAP Morbid obesity Surgical History (System 01/29/25 @ 09:25 by Trini Clement) No history of previous surgery Family History (System 01/29/25 @ 09:25 by Trini Clement) Mother No problems noted. Father Hypertension Social History (System 01/29/25 @ 09:25 by Trini Clement) Are you a primary respiratory care specialist to a significant other at home: No Do you presently have visiting nurse or other home services: No Alcohol intake: current Alcohol intake frequency: holidays/special occasions only Patient Tobacco Use Status: Never used Tobacco Behavioral Health Assessment Weight Management Therapy Therapy Notes Details Subjective: Patient was approved for bariatric surgery. The surgeon initially suggested a date of 03/16, but the patient is unable to proceed at that time due to an upcoming trip to [place] from 03/22 to 04/10. Surgery may be rescheduled for the first week following his return. The patient reports feeling well overall, with stable mood and good energy levels. 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 Objective: Patient presents for a pre-operative behavioral health visit via telehealth. He appeared alert, engaged, and appropriately dressed. During the session, we reviewed his current functioning, recent progress, and ongoing challenges, particularly in relation to his new work schedule and upcoming travel. Interventions included assessing his readiness for surgery, discussing strategies for managing preoperative anxiety and stress, and reinforcing the importance of maintaining healthy routines during periods of transition. Psychoeducation was provided regarding the psychological aspects of surgical preparation and postoperative adjustment. We also explored coping skills for managing potential disruptions to his meal and exercise plans during travel and work. Assessment/Response: * Mental status: Alert and oriented x3, mood euthymic, affect congruent, speech normal, thought process logical, insight and judgment intact. * Risk reported/identified: None The patient demonstrated insight into the behavioral changes required for surgical success and expressed motivation to adhere to recommendations. Assessment & Plan Assessment & Plan (1) Adjustment disorder: Code(s): F43.20 - Adjustment disorder, unspecified Qualifiers: Adjustment disorder type: with depressed mood Qualified Code(s): F43.21 - Adjustment disorder with depressed mood (2) Trauma and stressor-related disorder: Code(s): F43.9 - Reaction to severe stress, unspecified Plan A follow-up behavioral health visit will be scheduled 1?4 weeks postoperatively to assess psychological adjustment and screen for any concerns. Next appointment: 1-4 Weeks Post-op. Telehealth Telehealth Telehealth Platform: [employer] Location of provider rendering services: practice address Location of patient: address on file Patient Identification confirmed using: Name, : Yes Telehealth method: video Patient verbally consented to treatment: Yes Patient verbally consented to billing insurance company: Yes Patient informed of any privacy concerns related to visit: Yes Minutes spent on Phone/Video with Pt.: 45 Coding Level of Care Code Established Pt Tele Psytx 45 mins ([id number]) Patient Type Established Diagnoses Adjustment disorder with depressed mood F43.21 Adjustment disorder type: with depressed mood 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
== END 2025-03-03 11:59 | disposition home or self-care (01) ==
LOC: HO.HBST 11:06
PROVIDERS: PCP Internal Medicine Geriatric Medicine; Visit Provider Counselor Mental Health
DX: F43.21 Adjustment disorder with depressed mood (principal); F43.9 Reaction to severe stress, unspecified
CPT/HCPCS: 90834

== ENCOUNTER 2025-03-11 08:39 | Outpatient (REF) | payer OTHER, SELFPAY ==
--- NOTE | ~2025-03-11 | FL_ITS ---
EXAMINATION: XR FLUOROSCOPY UPPER GI WITH AIR CLINICAL INFORMATION: Morbid (severe) obesity due to excess calories COMPARISON: None available. TECHNIQUE: Number GI was performed using thin and thick barium and effervescent granules. FINDINGS: Esophageal motility is normal. There is a small sliding hiatal hernia. No reflux. No mass or stricture. The stomach and proximal small bowel are normal appearing. No fold thickening, mass, ulcer or stricture. FLUOROSCOPY TIME: 41 seconds DOSE AREA PRODUCT: 1046 uGy-m2 (microgray-meter squared) FL/FL upper GI w air IMPRESSION: Small sliding-type hiatal hernia. Otherwise unremarkable exam. Electronically signed by: Ne Orellana MD 03/11/2025 11:04 AM EDT
== END 2025-03-11 08:40 | disposition home or self-care (01) ==
LOC: HO.XRAY 08:39
PROVIDERS: PCP Internal Medicine Geriatric Medicine; Visit Provider Surgery
DX: E66.01 Morbid (severe) obesity due to excess calories (principal); G47.33 Obstructive sleep apnea (adult) (pediatric)
CPT/HCPCS: 74246

== ENCOUNTER → 2025-03-11 08:44 | Outpatient (BNV) | payer MEDICAID, SELFPAY | PROVIDERS: PCP Internal Medicine Geriatric Medicine; Visit Provider Radiology Diagnostic Radiology | DX: K44.9 Diaphragmatic hernia without obstruction or gangrene (principal) | CPT/HCPCS: 74246 ==